=== PATIENT | female | born 1995 | race Caucasian/White ===

== ENCOUNTER 2017-09-23 20:58 | Emergency (ER) | payer MEDICAID ==
[2017-09-23] MEDS ORDERED: methylPREDNISolone 125 MG* 2 ML VIAL IV ONE (21:03)
[2017-09-23] MEDS ORDERED: diPHENhydraMINE IV* 50 MG/ML 1 ml VIAL (BENADRYL) IV ONE (21:03)
[2017-09-23] MEDS ORDERED: Famotidine IV* 10 MG/ML 2 ML (20 mg) IV ONE (21:03)
[2017-09-23 21:39] VITALS: BP 130/76
[2017-09-23] MEDS ORDERED: predniSONE TAB* 20 MG PO ONE (22:27)
[2017-09-23] MEDS ORDERED: Famotidine TAB* 20 MG PO ONE (22:28)
--- NOTE | 2017-09-23 22:36 | ED ---
Jluis Solares Natalie, scribed for Zain Basurto MD on 09/23/17 at 2109 . Allergic Reaction/Systemic - HPI Summary HPI Summary: The patient is a 22 y/o F presenting to the ED c/o allergic reaction to nuts in a cracker she ate 45 minutes ago. She states that she immediately noticed there were nuts in the cracker when she put it in her mouth, and she immediately spit it out and used en Epi pen to much relief. Pt additionally c/o heart racing and swelling of throat. She feels okay now in the ED. - History of Current Complaint Time Seen by Provider: 09/23/17 21:01 Hx Obtained From: Patient Onset/Duration: Sudden Onset, Resolved Timing: Lasting Minutes Severity Initially: Severe Severity Currently: Mild Pain Scale Used: 0-10 Numeric Character: Swelling - in throat Alleviating Factor(s): Epinephrine Associated Signs And Symptoms: Positive: Throat Tightening, Other: - heart racing - Allergies/Home Medications Allergies/Adverse Reactions: Allergies Allergy/AdvReac Type Severity Reaction Status Date / Time amoxicillin Allergy Unknown Verified 09/23/17 21:15 Reaction Details nut - unspecified Allergy Difficulty Verified 09/23/17 21:08 Breathing/Wheezing Home Medications: Home Medications Melatonin (NF) [Meladox] 3 mg PO BEDTIME PRN 09/23/17 [History Confirmed ] Nicotine Lozenge* 1 mg MT TID PRN 09/23/17 [History Confirmed 09/23/17] Nicotine PATCH 14 MG/24 HR* 14 mg TRANSDERM DAILY 09/23/17 [History Confirmed ] diPHENhydraMINE PO* [Benadryl PO 25 MG TAB*] 25 mg PO BEDTIME PRN 09/23/17 [ History Confirmed 09/23/17] PMH/Surg Hx/FS Hx/Imm Hx Opthamlomology History: Denies: Hx Legally Blind EENT History: Denies: Hx Deafness - Family History Known Family History: Negative: Blood Disorder Review of Systems Positive: Other - throat tightening Positive: Palpitations All Other Systems Reviewed And Are Negative: Yes Physical Exam - Summary Physical Exam Summary: General: well-appearing, no pain distress Skin: warm, color reflects adequate perfusion, dry Head: normal Eyes: EOMI, CHRIS ENT: normal Neck: supple, nontender Respiratory: CTA, breath sounds present Cardiovascular: RRR Abdomen: soft, nontender Bowel: present Musculoskeletal: normal, strength/ROM intact Neurological: normal, sensory/motor intact, A&O x3 Psychological: affect/mood appropriate Triage Information Reviewed: Yes Vital Signs On Initial Exam: Initial Vitals Pulse Resp Pulse Ox 93 14 99 09/23/17 21:03 09/23/17 21:03 09/23/17 21:03 Vital Signs Reviewed: Yes Diagnostics - Vital Signs Vital Signs Temp Pulse Resp BP Pulse Ox 09/23/17 22:00 86 22 99 09/23/17 21:33 91 20 130/76 100 09/23/17 21:05 98.3 F 94 16 133/86 100 09/23/17 21:04 98 17 135/73 96 09/23/17 21:03 93 14 99 - Laboratory Lab Statement: Any lab studies that have been ordered have been reviewed, and results considered in the medical decision making process. Allergic Reaction Course/Dx - Course Course Of Treatment: Pts medications reviewed this visit. Allergies noted. High blood pressure noted and patient advised to follow up with PCP. WELL IN ED. DISCHARGE HOME STABLE. F/U PMD; RETURN IF WORSE. - Diagnoses Provider Diagnoses: Elevated BP without diagnosis of hypertension, Allergic reaction Discharge - Sign-Out/Discharge Documenting (check all that apply): Discharge/Admit/Transfer - Discharge Plan Condition: Stable Disposition: HOME Prescriptions: EPINEPHrine [Epipen 2-Rufus] 0.3 mg IM ONCE PRN #1 rufus PRN Reason: Allergy Symptoms Famotidine TAB* [Pepcid 20 MG TAB*] 20 mg PO BID PRN #8 tab PRN Reason: Allergy Symptoms predniSONE TAB* [Deltasone TAB*] 40 mg PO DAILY PRN #8 tab PRN Reason: Allergy Symptoms Patient Education Materials: [facility] [employer] (ED) Referrals: Hakeem Ribera [Primary Care Provider] - Additional Instructions: FOLLOW UP WITH YOUR DOCTOR. RETURN TO THE EMERGENCY DEPARTMENT FOR ANY WORSENING OF YOUR CONDITION OR QUESTIONS OR CONCERNS. - Billing Disposition and Condition Condition: STABLE Disposition: HOME The documentation as recorded by the Jluis orellana Natalie accurately reflects the service I personally performed and the decisions made by me, Zain Basurto MD.
== END 2017-09-23 23:36 | disposition home or self-care (01) ==
LOC: ED 20:58
DX: T78.1XXA Other adverse food reactions, not elsewhere classified, initial encounter (principal); R00.0 Tachycardia, unspecified; R22.1 Localized swelling, mass and lump, neck; R03.0 Elevated blood-pressure reading, without diagnosis of hypertension; Z91.018 Allergy to other foods; Z88.3 Allergy status to other anti-infective agents
CPT/HCPCS: 96374; 96375; 99283; A9270-GY; J1200; J2930; J7512